=== PATIENT | male | born 1985 | race Caucasian/White ===

== ENCOUNTER 2017-09-22 06:10 | Day surgery (SDC) | payer OTHER ==
[2017-09-22] MEDS ORDERED: MIDAZOLAM 1 MG/ML 2 ML INJ ×2 (07:45)
[2017-09-22] MEDS ORDERED: FENTAnyl 50 MCG/ML VIAL (07:45)
== END 2017-09-22 12:21 | disposition home or self-care (01) ==
LOC: GIL 06:10
DX: K44.9 Diaphragmatic hernia without obstruction or gangrene (principal); K21.9 Gastro-esophageal reflux disease without esophagitis; K29.60 Other gastritis without bleeding
CPT/HCPCS: 43239; 88305